=== PATIENT | female | born 1960 | race African-American/Black ===

== ENCOUNTER 2018-06-08 04:15 | Emergency (ER) | payer MEDICAID ==
[~2018-06-08] VITALS: Ht 157.5 cm; Wt 106.0 kg
[~2018-06-08 04:15] MED LIST: ASPI-1159 PO; ATOR-2 PO; HYDR12.54 PO; HYDR25TA PO; METH-375 PO; OMEP20CA10 PO
[2018-06-08 04:53] VITALS: BP 160/82
[2018-06-08] MEDS ORDERED: MECLIZINE 25MG TABLET PO ONE (05:15)
[2018-06-08 05:57] LABS: BASOPHILS % 0.6 % (0.0-2.0); EOSINOPHILS % 2.1 % (0.0-5.0); HEMATOCRIT. 34.7 % (36.0-48.0); HEMOGLOBIN. 11.3 g/dL (12.0-16.0); LYMPHOCYTES % 35.6 % (20.0-50.0); MEAN CORPUSCULAR HEMOGLOBIN 27.4 pg (28.0-32.0); MEAN CORPUSCULAR VOLUME 83.8 fL (81.0-99.0); MEAN PLATELET VOLUME 9.1 fl (7.4-10.4); NEUTROPHILS % 56.7 % (40.0-76.0); PLATELET 249 x1000/uL (130-400); RED BLOOD CELL COUNT 4.14 mill/uL (4.2-5.4); RED CELL DISTRIBUTION WIDTH 15.3 % (11.6-14.6)
[2018-06-08 05:59] LABS: CHLORIDE 106 mEq/L (98-107)
== END 2018-06-08 08:39 | disposition home or self-care (01) ==
LOC: ER 04:15
DX: R42 Dizziness and giddiness (principal); I10 Essential (primary) hypertension; E11.9 Type 2 diabetes mellitus without complications; E78.00 Pure hypercholesterolemia, unspecified; J45.909 Unspecified asthma, uncomplicated; Z88.1 Allergy status to other antibiotic agents; Z79.82 Long term (current) use of aspirin; Z79.899 Other long term (current) drug therapy
CPT/HCPCS: 36415; 70450; 71045; 80053; 84484; 85025; 86850; 86900; 86901; 93005; 99285; Z7610; J8597

== ENCOUNTER 2018-09-03 23:14 | Emergency (ER) | payer MEDICAID ==
[~2018-09-03] VITALS: Ht 167.6 cm; Wt 113.0 kg
[2018-09-03 23:16] VITALS: BP 152/90
== END 2018-09-03 23:30 | disposition left against medical advice (07) ==
LOC: ER 23:25
DX: R42 Dizziness and giddiness (principal); I10 Essential (primary) hypertension; R11.0 Nausea; Z96.641 Presence of right artificial hip joint; Z53.21 Procedure and treatment not carried out due to patient leaving prior to being seen by health care provider

== ENCOUNTER 2025-03-28 18:22 | Emergency (ER) | payer BC, MEDICAID ==
[~2025-03-28] VITALS: Ht 162.6 cm; Wt 100.0 kg
[~2025-03-28 18:22] MED LIST changes: -ASPI-1159 PO; +ASPI-1497 PO; -OMEP20CA10 PO; +OMEP20CA14 PO
[2025-03-28 18:32] VITALS: O2SAT 97
[2025-03-28] MEDS: IBUPROFEN 600MG TABLET PO STA (18:47)
[2025-03-28 20:05] VITALS: BP 142/73; PULSE 66; RESP 18; TEMP 37.1; O2SAT 98
== END 2025-03-28 20:00 | disposition home or self-care (01) ==
LOC: ER 18:22
DX: S09.90XA Unspecified injury of head, initial encounter (principal); I10 Essential (primary) hypertension; Z79.899 Other long term (current) drug therapy; Z79.82 Long term (current) use of aspirin; Z88.3 Allergy status to other anti-infective agents; Z98.890 Other specified postprocedural states; V89.2XXA Person injured in unspecified motor-vehicle accident, traffic, initial encounter; Y93.89 Activity, other specified; Y92.410 Unspecified street and highway as the place of occurrence of the external cause; Y99.8 Other external cause status
CPT/HCPCS: 99284